=== PATIENT | female | born 1985 | race Caucasian/White ===

== ENCOUNTER 2017-04-29 14:14 | Emergency (ER) | payer MEDICAID, OTHER, SELFPAY ==
[2017-04-29 14:47] LABS: Bilirubin Negative (Negative); Blood, Urine Large (Negative); Clarity CLEAR (Clear); Glucose, Urine (Dipstick) Negative (Negative); Leukocyte Negative (Negative); Nitrite Negative (Negative); Protein, Urine (Dipstick) Negative (Neg-Trace); Specific Gravity, Urine 1.008 (1.002-1.036); Urobilinogen 0.2 mg/dL (0.2-1.0); pH, Urine 6.5 (5.0-9.0)
[2017-04-29 14:50] LABS: Bacteria/HPF None Seen HPF (None Seen); Hyaline Casts/LPF 0-3 HYALINE CAST LPF (0-3 Hyaline); Pathc Cast-AUWi Flag 0.13 (0-2.49); Squamous Epithelial None Seen HPF (0-3); WBC/HPF None Seen HPF (0-3)
[2017-04-29 15:48] LABS: #Eosinphils 0.5 thou/uL (0.0-0.7); #Lymphocytes 1.9 thou/uL (1.20-3.40); #Monocytes 0.7 thou/uL (0.11-0.59); #Neutrophils 4.6 thou/uL (1.40-6.50); %Basophils 0.6 % (0.0-1.0); %Eosinophils 6.6 % (0.0-10.0); %Lymphocytes 24.3 % (21.0-51.0); %Monocytes 9.4 % (0.0-10.0); Hemoglobin 13.4 g/dL (12.0-16.0); Mean Corpuscular HGB CONC 32.9 g/dL (32.0-36.0); Mean Corpuscular Hemoglobin 27.5 pg (27.0-31.0); Mean Corpuscular Volume 83.6 fl (81.0-99.0); Mean Platelet Volume 7.3 fL (7.4-10.4); Platelet Count 278 thou/uL (130-400); RBC Distribution Width 13.8 % (11.5-14.5); Red Blood Cell (RBC) Count 4.89 mill/uL (4.20-5.40); White Blood Cell (WBC) Count 7.7 thou/uL (4.8-10.8)
--- NOTE | 2017-04-29 16:44 | ULT ---
OB ULTRASOUND: 04/29/17 HISTORY: 10 week with vaginal bleeding. FINDINGS: transabdominal and endovaginal ultrasound of pelvis performed. There is a gestational sac identified in the endometrial cavity. A pole is not identified. A yo lk sac is not identified. There is a surrounding hypoechoic region which is suggestive of a subarachn oid hemorrhage. Maternal ovaries are identified and appear unremarkable. Color doppler with spectral analysis demonst rates blood flow to the ovaries. There is a small amount of free fluid. IMPRESSION: A gestation sac is seen with gestation sac measurement indicating a 6 week, 0 day gestation. A pole is not identified and yolk sac is not identified. There is suggestion of a subchorionic hemorrha ge. Missed AB or AB in progress are considerations. POS: DOLLY
== END 2017-04-29 16:47 | disposition home or self-care (01) ==
LOC: ERS 14:14
DX: O20.8 Other hemorrhage in early pregnancy (principal); O99.331 Smoking (tobacco) complicating pregnancy, first trimester; F17.210 Nicotine dependence, cigarettes, uncomplicated; Z3A.10 10 weeks gestation of pregnancy
CPT/HCPCS: 36415; 76856; 81003; 81015; 84702; 85025; 86900; 86901; 99284

== ENCOUNTER 2017-04-30 08:18 | Emergency (ER) | payer SELFPAY ==
[2017-04-30] MEDS ORDERED: Ondansetron ODT 4 MG TAB ONE (09:17)
[2017-04-30] MEDS ORDERED: Acetaminophen 500 MG TAB ONE (09:17)
== END 2017-04-30 10:27 | disposition home or self-care (01) ==
LOC: ERS 08:18
DX: O20.0 Threatened abortion (principal); O99.331 Smoking (tobacco) complicating pregnancy, first trimester; Z3A.09 9 weeks gestation of pregnancy
CPT/HCPCS: 99283; Q0162

== ENCOUNTER 2017-05-01 10:20 | Emergency (ER) | payer MEDICAID, SELFPAY ==
--- NOTE | 2017-05-01 12:00 | ULT ---
TRANSVAGINAL PELVIC ULTRASOUND WITH COLOR FLOW AND SPECTRAL DOPPLER: Date: 05/01/17 HISTORY: Pelvic pain. Vaginal bleeding. Spontaneous . FINDINGS: Comparison made with exam of 04/29/17. The uterus measures 10.3 x 6.1 x 6.9 cm without uterine mass or endometrial fluid. The endometrium me asures 1.8 cm in thickness. No intrauterine gestational sac or endometrial fluid is seen. The previou sly noted gestational sac on 04/29/17 is no longer visualized. Right ovary measures 2.4 x 2.3 x 1.5 cm. Left ovary measures 1.5 x 1.3 x 1.8 cm. Flow is demonstrated to the ovaries. No free fluid is seen in the cul-de-sac. IMPRESSION: No evidence of intrauterine gestation or retained products of conception. POS: OFF
[2017-05-02 21:21] LABS: Chlamydia by PCR Not Detected (NotDetected); GC by PCR Not Detected (NotDetected)
== END 2017-05-01 12:15 | disposition home or self-care (01) ==
LOC: SCSER 10:20
DX: O03.9 Complete or unspecified spontaneous abortion without complication (principal); F17.210 Nicotine dependence, cigarettes, uncomplicated
CPT/HCPCS: 36415; 76856; 84702; 87480; 87491; 87510; 87591; 87660; 88305

== ENCOUNTER 2017-07-12 02:02 | Emergency (ER) | payer MEDICAID, OTHER | END 2017-07-12 02:26 | disposition home or self-care (01) | LOC: SCSER 02:02 | DX: H65.91 Unspecified nonsuppurative otitis media, right ear (principal); H60.91 Unspecified otitis externa, right ear; F17.210 Nicotine dependence, cigarettes, uncomplicated | CPT/HCPCS: 99282 ==